=== PATIENT | male | born 1955 | race Caucasian/White ===

== ENCOUNTER → 2022-06-30 12:01 | Emergency (ER) | payer MEDICARE, BC ==
[~2022-06-30] VITALS: Ht 182.9 cm; Wt 114.0 kg
[~2022-06-30 12:01] MED LIST: HYDR-4902 PO; MORPHINE SULFATE 4 MG/ML SYR/VIAL IV ONE; ONDANSETRON HCL 4 MG/2 ML VIAL IV ONE; PANTOPRAZOLE 40 MG/10 ML VIAL INJ IV ONE
[2022-06-30 15:26] LABS: Basophils # (auto) 0.1 10 ^3/uL (0-0.2); Basophils % (auto) 0.4 % (0.0-2.0); Eosinophils # (auto) 0 10 ^3/uL (0-0.8); Eosinophils % (auto) 0.2 % (0.0-7.0); Hematocrit 46.1 % (41.0-53.0); Lymphocytes # (auto) 0.8 10 ^3/uL (0.4-5.4); Lymphocytes % (auto) 5.6 % (10.0-50.0); Mean Corpuscular Hemoglobin 27.6 pg (28.0-32.0); Mean Corpuscular Hgb Conc. 32.7 g/dL (32.0-36.0); Mean Corpuscular Volume 84.5 fL (80.0-100.0); Monocytes # (auto) 0.7 10 ^3/uL (0-1.3); Monocytes % (auto) 4.5 % (0.0-12.0); Neutrophils # (auto) 13.2 10 ^3/uL (1.6-8.6); Neutrophils % (auto) 89.3 % (37.0-80.0); Red Blood Cells 5.45 10^6/uL (4.5-5.90); Red Cell Distribution Width 13.8 % (11.8-14.3); White Blood Cell 14.8 10^3/uL (4.4-10.8)
[2022-06-30 15:45] LABS: Albumin 4.1 g/dL (3.4-5.0); Calcium 9.2 mg/dL (8.5-10.1); Potassium 4.1 mmol/L (3.5-5.1)
[2022-06-30 15:47] LABS: BUN/Creatinine Ratio 17.5
[2022-06-30 15:50] LABS: Bilirubin, Total 0.5 mg/dL (0.2-1.0); Total Protein 7.5 g/dL (6.4-8.2)
[2022-06-30 19:29] VITALS: BP 137/80
== END | disposition home or self-care (01) ==
LOC: EDUNIT# 11:55 → EDBD 12:01 → ER 12:01
DX: S92.002A Unspecified fracture of left calcaneus, initial encounter for closed fracture (principal); S16.1XXA Strain of muscle, fascia and tendon at neck level, initial encounter; I10 Essential (primary) hypertension; Z90.89 Acquired absence of other organs; Z79.899 Other long term (current) drug therapy; W11.XXXA Fall on and from ladder, initial encounter; Y93.89 Activity, other specified; Y92.89 Other specified places as the place of occurrence of the external cause; Y99.8 Other external cause status
CPT/HCPCS: 29505; 36415; 70450; 72125; 72131; 73650; 80053; 85025; 96374; 96375; 99285; C9113; J2270; J2405